=== PATIENT | female | born 1995 | race Caucasian/White ===

== ENCOUNTER 2019-12-13 17:34 | Outpatient (AMB) | payer MEDICAID, SELFPAY ==
--- NOTE | 2019-12-13 17:43 | UCVISIT ---
Intake Ht./Wt. Decline/Exclusions Patient Declined Height and Weight this visit: No PT Meets exclusion criteria: No Vital Signs 12/13/19 17:44 Height 1.63 m Height Method Measured Weight 74.843 kg Weight Measurement Method Standing Scale BMI 28.3 Temp 99.1 F Temp Source Temporal Artery Scan Pulse 90 Pulse Source Monitor Respiration 18 BP 154/94 H Blood Pressure Source Automatic Cuff Blood Pressure Location Left Upper Arm Position Sitting Pulse Oximetry (%) 99 Oxygen Delivery Method Room Air Intake [place] Travel (last 14 days): No [facility] Travel (last 14 days): No Been in Contact w/Anyone Being Evaluated for Coronavirus (last 14 days): No Been in Close Contact w/Anyone Dx w/Coronavirus: No Zika Travel: No Been in contact w/anyone who has been Dx w/Zika Virus: No Been in contact w/anyone sick during travel outside country: No Patient >or equal to 18 years BMI outside of range 18.5-24.9: No Visit Reasons: UC Urinary Tract Infection Primary Care Provider: Paty Cassidy Is patient in pain?: No Triage Triage Allergy / Med Rec Allergies No Known Allergies Allergy (Verified 10/20/19 14:26) Band Placement: Patient Identification ERICA: [id number] Arrival Mode of Arrival: Private Vehicle Method of Arrival: Ambulatory Accompanied By: Self Prehospital Treatment: home meds PCP or OBGYN visit in last 3 months: Yes Language Preferred Language: Latvian Dental Equipment Mechanic Required: No Female History Now: No : No Social History Alcohol / Drugs Hx Alcohol Use: No Hx Substance Use: No Safety Do You Feel Safe at Home: Yes Authorities Contacted: N/A [place] Fall Scale Special Populations Patient Comatose, Paralyzed or Immobile: No Patient Under the Age of 44 Years Old: No Assessment History of falling; immediate or within 3 months: No Secondary diagnosis: No Ambulatory aid: None IV Infusion: No Gait/Transferring: Normal/bedrest/immobile Mental Status: Oriented to own ability Score Score: 0 Risk Level/Action Risk Level: Low Risk Action: Good Basic Nursing Care Fall Star Level 1 Fall Star Level 1: Yes Patient Education Topic Education Topics: Discharge Instructions Teaching Recipient: Patient Readiness, Motivation to Learn: Active Methods: Verbal instruction Educ Materials Suggested by INFO Button/Rx Monograph Given: No Response: Verbalize Understanding Dental Equipment Mechanic Required: No Population Health PMH Hx Congestive Heart Failure: No Hx Diabetes Mellitus Type 1: No Hx Diabetes Mellitus Type 2: No Hx Renal Disease: No Hx Chronic Obstructive Pulmonary Disease (COPD): No Past Medical History Reviewed and agree with Nursing documentation.: Yes Past Medical History History Provided By: Patient Past Medical History: No Family Medical History Systems Hx Family Cardiac Disorders: No Family Medical History Other Hx Family Allergies: No Hx Family Anesthesia Reaction: No Hx Family Autoimmune Disease: No Hx Family Cancer: No Hx Family Surgery: No Cardiac Medical History Hx Cardiac Disorders: No Hx Congestive Heart Failure: No Endocrine Medical History Hx Endocrine Disorders: No Hx Diabetes Mellitus Type 1: No Hx Diabetes Mellitus Type 2: No Gastrointestinal Medical History Hx Gastrointestinal Disorders: No Genitourinary Medical History Hx Genitourinary Disorders: No Hx Renal Disease: No Hematologic Medical History Hx Blood Disorders: No Hx Sickle Cell Disease: No Musculoskeletal History Hx Musculoskeletal Disorders: No Neurologic Medical History Hx Neurological Disorders: No Hx Seizures: No Psycho/Social Medical History Hx Psychosocial Disorder: No Hx Depression: No Reproductive Medical History Hx Reproductive Disorders: No Reproductive Female History Hx Endometriosis: No Hx Pelvic Inflammatory Disease: No Hx Previous Pregnancies: Yes Respiratory Medical History Hx Asthma: No Hx COPD: No General Surgical History Hx Surgery: No Cardiac Surgical History Hx Cardiac Surgery: No Endocrine Surgical History Hx Endocrine Surgery: No ENT Surgical History Hx Ear Surgery: No GI Surgical History Hx Abdominal Surgery: No Surgical History Hx Nephrectomy: No Musculoskeletal Surgical History Hx Joint Replacement: No Neuro Surgical History Hx Neurologic Surgery: No Female Reproductive Surgical History Hx Section: No [facility] -Treatments & Interventions Hx Anesthesia Reactions: No Hx Blood Transfusions: No Hx Blood Transfusion Reaction: No [facility] - Drug Resistant Organism Hx MRSA: No Hx Vancomycin-Resistant Enterococci: No Hx VRSA: No [facility] - Communicable Disease Hx Clostridium Difficile: No Hx Chicken Pox: No Hx Hepatitis: No Hx HIV: No Hx HPV: No Hx Measles: No Hx Mumps: No Hx Pertussis: No Hx Rubella: No [facility] - Cancer Hx Bone Cancer: No Hx Breast Cancer: No Hx Cervical Cancer: No Hx Colorectal Cancer: No Hx Lung Cancer: No Hx Ovarian Cancer: No Hx Prostate Cancer: No Hx Skin Cancer: No Hx Uterine Cancer: No HPI UTI - Female Patient is a 24yo female that presents to clinic with complaint of painful urination, denies F/C/N/V, denies abd pain. Denies blood in urine. Pain is localized to urinary meatus, burning, mild, better with cease stream. Denies flank pain, denies any history of urinary calculi, denies vaginal itching/discharge, denies any history of recurrent UTI. Review of Systems (UC) Review of Systems ROS Unobtainable: All systems reviewed & no additional complaints except as documented Genitourinary: Reports as per HPI Exam (UC) Limitations: no limitations General Appearance: alert, in no apparent distress, comfortable, cooperative, healthy appearing, well developed and well groomed Head exam: atraumatic, normocephalic and normal inspection Eye exam: Reports appearance normal, both eyes and all related structures and Reports EOM intact bilaterally SPO2%: 99% SPO2 type: Room Air SPO2% Normal/Abnormal: Normal Abdominal Exam: Present non-tender, non-distended, normal bowel sounds and soft; Absent guarding, heel tap sign, Anderson's sign, obturator sign, rigidity and tenderness at McBurney's Point Skin exam: Present warm, dry, intact and normal color Office Procedures UC Bedside Tests Bedside Test Rapid Test: Negative UC Level of Care Nursing/Assessment/Reassessment Patient Status: Established Patient Nursing Assessment/Reassessment: Triage Asessment, Initial Vital Signs and RN General Assessments Coordination of Care: DC Instructions Simple 1-2 sets, Lab/Imaging Orders and Specimen Collection Established Patient Charge Established Patient Point Assignment: 65 Established Patient Point Assignment: EP Level 2 (40-75) Procedures: Pulse Ox reading: Yes Assessment and Plan Assessment & Plan (1) Dysuria: Status: Acute Plan Details Other Medications: New: nitrofurantoin monohyd/m-cryst 100 mg (Macrobid) must administer with a meal/food 100 mg PO Q12H 7 days 14 caps 0RF Other Orders: Orders: Urine Culture Today Urine Chem 10, Urgent Care Today HCG Qual,Ur Urgent Care Today Additional Comments: The patient has urinary symptoms, physical exam are consistent with UTI. The patient does not show signs of distress, hypoxia, or dehydration and is taking adequate oral intake. Clinical exam is not concerning for bacteremia or sepsis. I am comfortable with home management and oral antibiotics. The patient was discharged home with appropriate antibiotics and PCP follow-up. Return precautions were given to include increased work of breathing, persistent fevers > 101 for > 2-3 days, severe vomiting, inability to tolerate antibiotics, lethargy, worsening chest pain, or other new concerns. Patient and/or Caregiver verbalized understanding, feels comfortable with proposed plan, and all questions were answered prior to discharge. I emphasized the need for follow-up with their primary care provider. Failure to follow-up could result in a poor outcome or failure of treatment altogether. If the patient is unable to follow-up with their primary care provider, they are to return to the Emergency Department if their symptoms persist or worsen. I have reviewed the discharge treatment plan and follow-up instructions with the patient and/or patient representatives, addressed any concerns, and answered any and all questions. They have verbalized understanding of the discharge treatment plan. Primary Care Provider: Paty Cassidy Instructions: Dysuria Additional Information PA[employer] Supervising Physician: Chris Robert [facility] Evaluation Discharge Information Seen, Treated and Released by Provider: No Left Prior to Receiving Discharge Instructions: No Transfer to Outside Facility: No Vital Signs Vitals Signs N/A: Yes Medication Medication Given this Visit: No Reaction to Medication: No Discharge Information Condition on Discharge: Stable Mode of Discharge: Ambulatory Discharge Transportation: Private Vehicle Instructions Dental Equipment Mechanic Required: No Was Follow up Care Ordered: Yes Verbalizes Understanding of Discharge Instructions: Yes [facility] information card provided?: No Patient plan follow up w/PCP for [facility]: No
[2019-12-13 17:44] VITALS: BP 154/94; PULSE 90; RESP 18; TEMP 37.3; O2SAT 99; BMI 28.3
[2019-12-13 17:53] LABS: Bilirubin,Urine Clinitek Negative (Negative); Blood,Urine Clinitek Trace-intact (Negative); Glucose, Urine Clinitek Negative (Negative); Ketones,Urine Clinitek Negative (Negative); Leukocyte Esterase,Urine Clin 2+ (Negative); Nitrite,Urine Clinitek Negative (Negative); PH,Urine Clinitek 5.5 (5.0-7.0); Protein,Urine Clinitek Negative (Neg - Trace); Specific Gravity,Urine Clin 1.025 (1.001-1.030); Urobilinogen,Urine Clinitek 0.2 mg/dL (0.0-1.0)
[2019-12-13 20:05] LABS: HCG Qual,Ur Urgent Care Negative
== END 2019-12-13 18:05 | disposition home or self-care (01) ==
PROVIDERS: PCP Family Medicine; Referring Provider Family Medicine; Visit Provider Physician Assistant